=== PATIENT | female | born 1960 | race Caucasian/White ===

== ENCOUNTER → 2016-11-28 | Outpatient (CLI) | payer MEDICARE, MEDICAID ==
[~2016-11-28] MED LIST: ADVAIR HFA 230/1 KIT INH; ARTIFICIAL TEAR15 ML OPHTH; CIPROFLOXACIN HC5 ML OPHTH; DUREZOL5 ML OPHTH; LEVOTHROID (S112 MCG PO; NEXIUM40 MG PO; NORCO 5-325 MG1 TAB PO; WELLBUTRIN XL150 MG PO; XANAX0.5 MG PO
== END | disposition disaster alternative care site (69) ==
LOC: GRAD 11:56
DX: R13.10 Dysphagia, unspecified (principal); K44.9 Diaphragmatic hernia without obstruction or gangrene